=== PATIENT | male | born 1970 | race Two or more races ===

== ENCOUNTER 2020-11-29 05:26 | Emergency (ER) | payer SELFPAY ==
[~2020-11-29] VITALS: Ht 188 cm; Wt 79.4 kg
[2020-11-29 05:36] VITALS: BP 130/80
== END 2020-11-29 06:30 | disposition home or self-care (01) ==
LOC: ER 05:29
DX: M25.572 Pain in left ankle and joints of left foot (principal); F31.9 Bipolar disorder, unspecified
CPT/HCPCS: 73610-TC